=== PATIENT | male | born 1940 | race Caucasian/White ===

== ENCOUNTER → 2019-10-24 11:46 | Outpatient (CLI) | payer MEDICARE, SELFPAY ==
--- NOTE | ~2019-10-24 | XR_ITS ---
EXAMINATION: XR abdomen/kub 1V INDICATION: Bilateral kidney stones TECHNIQUE: Supine views of the abdomen were obtained on 2 radiographs. COMPARISON: 03/08/2019, 02/15/2019 FINDINGS: There has been interval treatment of two stones previously seen in the right distal ureter. Stones of the left kidney measure up to 7 mm. There are multiple punctate stones throughout the left kidney as well as multiple punctate stones of the right kidney. No definite stones are identified al elver the expected courses of the ureters or within the urinary bladder. There is severe lumbar spondyl osis. A moderate volume of colonic stool is present. The lung bases are clear. IMPRESSION: 1. Interval treatment of previously described stones of the right distal ureter. 2. Bilateral nephrolithiasis. Reviewed, dictated and finalized at location A. IMPRESSION: 1. Interval treatment of previously described stones of the right distal ureter . 2. Bilateral nephrolithiasis.
== END ==
PROVIDERS: PCP Family Medicine Adolescent Medicine; Visit Provider Urology
DX: N20.0 Calculus of kidney (principal)
CPT/HCPCS: 74018

== ENCOUNTER → 2020-08-15 09:59 | Outpatient (CLI) | payer MEDICARE, SELFPAY ==
--- NOTE | ~2020-08-15 | XR_ITS ---
EXAMINATION: XR pelvis 1-2V EXAM DATE: 08/15/2020 10:22 INDICATION: fx of superior+inferior pubic rami. TECHNIQUE: Pelvis frontal projection(s) obtained and reviewed. There is no prior study for compariso n. FINDINGS: There are right-sided superior and inferior rami fractures. There is displacement of the gage perior ramus fracture. The sacral arcuate lines do appear intact. Lower lumbar spondylosis. Moderate symmetric bilateral hip primary osteoarthritis. The soft tissue is unremarkable. IMPRESSION: Right superior, inferior rami fractures with superior ramus displaced inferiorly. Reviewed, dictated and finalized at location A. CY MANAGER IMPRESSION: Right superior, inferior rami fractures with superior ramus displa sheri inferiorly.
== END ==
PROVIDERS: PCP Family Medicine Adolescent Medicine; Visit Provider Family Medicine Adolescent Medicine
DX: S32.511A Fracture of superior rim of right pubis, initial encounter for closed fracture (principal)
CPT/HCPCS: 72170

== ENCOUNTER → 2020-09-11 12:27 | Outpatient (CLI) | payer MEDICARE, SELFPAY ==
--- NOTE | ~2020-09-11 | DEXA_ITS ---
Bone Density Report Name: Donte Wayne Age: 80 Sex: Male Ethnicity: White Date of : 1940 Indication: screening for osteoporosis; height loss; prior fracture; Referring Provider: RAJENDRA CATALAN Study: Bone densitometry was performed. Exam Date: September 11, 2020 Accession number: [id number] Bone Density: Region BMD T-score Z-score Classification AP Spine (L3, L4) 1.108 -0.1 1.1 Normal Femoral Neck (Left) 0.683 -1.8 -0.3 Osteopenia Total Hip (Left) 0.819 -1.4 -0.3 Osteopenia Femoral Neck (Right) 0.636 -2.2 -0.6 Osteopenia Total Hip (Right) 0.743 -1.9 -0.8 Osteopenia Total Hip Mean 0.781 -1.7 -0.6 Osteopenia World Health Organization criteria for BMD impression classify patients as: Normal (T-score at or above -1.0), Osteopenia (T-score between -1.0 and -2.5), or Osteoporosis (T-score at or below -2.5). 10-year Fracture Risk(1): Major Osteoporotic Fracture 11% Hip Fracture 4.7% Reported Risk Factors: [place] (), Neck BMD=0.636, BMI=20.5, previous fracture (1) FRAX(R) Version 3.08. Fracture probability calculated for an untreated patient. Fracture probability may be lower if the patient has received treatment. Clinical Information Provided by Patient: Has had a low trauma fracture Has used the following medications: Vitamin D, Calcium Patient maximum height was 71.0 Drinks caffeinated beverages Impression: The patient has low bone mass, based on the Right Femoral Neck T-score. The patient has an estimated ten-year risk of hip fracture of 4.7% and an estimated ten-year risk of major fracture of 11%, based on the WHO FRAX algorithm. The patient has risk factors, including: previous fracture. Discussion: BONE DENSITY IS LOW AT ONE OR MORE SKELETAL SITES. THE PATIENT'S BMD AND CLINICAL RISK FACTORS CONTRIBUTE TO THIS PATIENT'S INCREASED RISK OF FRACTURE. This patient's lowest T-score is low at one or more skeletal sites. It meets the World Health Organization's (WHO) criteria for ?low bone mass? (T-score between -1.0 and -2.5). The patient's 10-year risk of hip fracture as calculated by FRAX exceeds the threshold where pharmacological therapy is recommended by the National Osteoporosis Foundation (NOF). However, all treatment decisions require clinical judgment and consideration of individual patient factors, including patient preferences, comorbidities, previous drug use, risk factors not captured in the FRAX model (e.g., frailty, falls, vitamin D deficiency, increased bone turnover, interval significant decline in bone density) and possible under or overestimation of fracture risk by FRAX. The patient should follow a healthful lifestyle (good nutrition with adequate calcium and vitamin D, and appropriate weight-bearing exercise). Follow-Up: Consider repeating this study in 2 ye
--- NOTE | ~2020-09-11 | XR_ITS ---
XR pelvis 1-2V DATE: 09/11/2020 13:35 INDICATION: Right superior and inferior pubic ramus fractures TECHNIQUE: AP view COMPARISON: pelvis FINDINGS: Diffuse osteopenia. Displaced right superior pubic ramus fracture and right inferior pubic ramus fracture are again noted . Alignment appears intact at the pubic symphysis and sacroiliac joints. Hip joints are normally aligned, hip joint spaces are relatively preserved. Dextroscoliosis and multilevel degenerative disc disease of the lumbar spine. IMPRESSION: Right superior and inferior pubic ramus fractures appear stable compared to 08/15/2020 Reviewed, dictated and finalized at location A. OFABRICATION ENGINEER MANAGER IMPRESSION: Right superior and inferior pubic ramus fractures appear stable com pared to 08/15/2020
== END ==
PROVIDERS: PCP Family Medicine Adolescent Medicine; Visit Provider Family Medicine Adolescent Medicine
DX: M85.88 Other specified disorders of bone density and structure, other site (principal); S32.511D Fracture of superior rim of right pubis, subsequent encounter for fracture with routine healing; X58.XXXD Exposure to other specified factors, subsequent encounter; M85.852 Other specified disorders of bone density and structure, left thigh; M85.851 Other specified disorders of bone density and structure, right thigh
CPT/HCPCS: 72170; 77080

== ENCOUNTER 2021-10-23 11:26 | Outpatient (CLI) | payer MEDICARE, SELFPAY ==
--- NOTE | ~2021-10-23 | XR_ITS ---
XR abdomen/kub 1V DATE: 10/23/2021 12:10 INDICATION: Bilateral kidney stones TECHNIQUE: AP projection, 2 views COMPARISON: 10/24/2019 KUB 03/08/[address] abdomen pelvis FINDINGS: . No evidence of bowel obstruction. Multiple calcifications overlie the renal silhouettes; extensive nephrolithiasis was noted on 03/08/[address] abdomen pelvis examination. At least 4 calcifications are noted in a vertical linear array over lying the expected position of the ureter in the L5 area, of uncertain significance. Consider noncont rast CT abdomen pelvis examination for more definitive evaluation for urinary tract stones. There is a moderately prominent amount of fecal material in the colon, especially the ascending colon . No bowel obstruction is evident. There is evidence of prostate calcifications. The lower lung zones are clear. Heart size appears normal. Diffuse osteopenia. There is thoracolumbar dextroscoliosis. There is degenerative change of the thoracic spine and lumbar spine, with particularly severe degenerative disc disease at L1-2 and L2-3. Old pelvic fracture deformities including particularly the right superior and inferior pubic rami. IMPRESSION: Bilateral nephrolithiasis; cannot exclude right ureteral calculi and L5 area. Consider no ncontrast CT abdomen pelvis examination for more definitive evaluation Prostate calcifications Moderately prominent of fecal material in the colon; no evidence of bowel obstruction Reviewed, dictated and finalized at Location A. Reviewed, dictated and finalized at location A. IMPRESSION: Bilateral nephrolithiasis; cannot exclude right ureteral calculi an d L5 area. Consider noncontrast CT abdomen pelvis examination for more definiti ve evaluation Prostate calcifications Moderately prominent of fecal material in the colon; no evidence of bowel obstr uction
== END 2021-10-23 11:27 | disposition home or self-care (01) ==
LOC: ANHIMG 11:30
PROVIDERS: PCP Family Medicine Adolescent Medicine; Visit Provider Urology
DX: N20.0 Calculus of kidney (principal); M41.9 Scoliosis, unspecified; M47.816 Spondylosis without myelopathy or radiculopathy, lumbar region
CPT/HCPCS: 74018

== ENCOUNTER 2021-10-31 10:03 | Outpatient (CLI) | payer MEDICARE, SELFPAY ==
--- NOTE | ~2021-10-31 | CT_ITS ---
EXAMINATION: CT abdomen pelvis wo con DATE: 10/31/2021 10:27 INDICATION: Bilateral kidney stones TECHNIQUE: Computed tomography (CT) of the abdomen and pelvis was performed without intravenous contr ast. The dose-length product was 158.80 mGy-cm. Automated exposure control and iterative reconstructi on technique were employed. COMPARISON: CT dated 03/08/2019. FINDINGS: Lung bases are unremarkable. Heart size is normal. There is atherosclerosis of the aorta wi thout aneurysm. No no significant pleural or pericardial effusion. There are multiple bilateral renal cysts. There are innumerable bilateral renal stones which are nono bstructing. No definite urolithiasis is identified. There are multiple bladder stones. There are comp licated renal cyst with associated calcification, likely benign. Nonobstructive bowel gas pattern wit h moderate colonic fecal loading. Colonic diverticulosis without evidence for diverticulitis. There a re healed right superior and inferior pubic rami fractures. There is osteoarthritis of the hips. Mode rate-severe lumbar spondylosis. IMPRESSION: 1. Bilateral nonobstructing renal and bladder stones. Reviewed, dictated and finalized at location A.
== END 2021-10-31 10:04 | disposition home or self-care (01) ==
PROVIDERS: PCP Family Medicine Adolescent Medicine; Visit Provider Urology
DX: N21.0 Calculus in bladder (principal); N20.0 Calculus of kidney; M47.816 Spondylosis without myelopathy or radiculopathy, lumbar region; M16.0 Bilateral primary osteoarthritis of hip; K57.30 Diverticulosis of large intestine without perforation or abscess without bleeding
CPT/HCPCS: 74176

== ENCOUNTER → 2022-01-14 15:17 | Outpatient (CLI) | payer MEDICARE, SELFPAY ==
--- NOTE | ~2022-01-14 | MR_ITS ---
EXAMINATION: MR brain IAC wo con DATE: 01/14/2022 16:35 INDICATION: Unspecified dementia without behavioral disturbance. TECHNIQUE: Magnetic resonance imaging (MRI) of the brain, brainstem, and internal auditory canals was performed without intravenous contrast. 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 There are scattered areas of no nspecific increased T2-weighted signal intensity in the cerebral white matter. There is decreased T2* weighted signal intensity at the cortex in the frontal lobes bilaterally. There is no acute ischemic infarct or abnormal mass lesion. The ventricles are normal in size. There is mild mucosal thickening in the ethmoid sinuses. There are likely changes of ocular lens replacement surgeries. The internal a uditory canals and inner and middle ears are normal. The mastoid air cells are normal. IMPRESSION: 1. 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 2. 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 3. Worsened moderate nonspecific cerebral white matter disease, which likely represents chronic small vessel ischemic disease. Reviewed, dictated and finalized at location A. IMPRESSION: 1. 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 2. 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 3. Worsened moderate nonspecific cerebral white matter disease, which likely re presents chronic small vessel ischemic disease.
== END ==
PROVIDERS: PCP Family Medicine Adolescent Medicine; Visit Provider Family Medicine Adolescent Medicine
DX: F03.90 Unspecified dementia, unspecified severity, without behavioral disturbance, psychotic disturbance, mood disturbance, and anxiety (principal); Z86.73 Personal history of transient ischemic attack (TIA), and cerebral infarction without residual deficits; R90.82 White matter disease, unspecified
CPT/HCPCS: 70551

== ENCOUNTER 2022-08-16 13:30 | Inpatient (IN) | payer MEDICARE, SELFPAY ==
--- NOTE | ~2022-08-16 | US_ITS ---
EXAMINATION: US abdomen limited DATE: 08/17/2022 18:05 INDICATION: Elevated liver enzymes TECHNIQUE: Multiple grayscale and Doppler ultrasound images of limited portions of the abdomen were o btained. COMPARISON: None available. FINDINGS: The visualized portions of the pancreas are normal. The liver is normal with normal echogen icity and echotexture. No surface nodularity. Normal hepatopetal flow in the main portal vein. Color partially contracted. Sludge and mobile echogenicities in the gallbladder fundus likely representing stones. Moderate gallbladder wall thickening. The common bile duct measures 5 mm. There was no sonogr aphic Ruiz sign. IMPRESSION: Cholelithiasis, biliary sludge, and gallbladder wall thickening. Reviewed, dictated and finalized at location K. HEARTH FURNACE LABORER
--- NOTE | ~2022-08-16 | XR_ITS ---
XR chest 1V portable 08/16/2022 13:53 Indication: Weakness and lethargy. Dehydration. Procedure: AP portable chest Comparison: 05/24/2019 Findings: Heart size normal. Calcified granuloma left upper thorax. Left basilar airspace disease. No significant effusion or pneumothorax. No acute osseous abnormality. Impression: 1: Left basilar airspace disease may represent pneumonia and/or atelectasis. Reviewed, dictated and finalized at location A. EL ADMINISTRATOR Impression: 1: Left basilar airspace disease may represent pneumonia and/or atelectasis.
--- NOTE | ~2022-08-16 | MR_ITS ---
EXAMINATION: MR MRCP wo/w con/w 3D wo ind DATE: 08/20/2022 10:22 INDICATION: Elevated bilirubin TECHNIQUE: Magnetic resonance imaging (MRI) of the abdomen was performed without intravenous contrast . The study was terminated prior to completion of the standard complement of sequences and prior to a dministration of the planned intravenous contrast due to patient combativeness which persisted despit e medication. Sequences obtained included hoist worker localizer imaging and only the axial T2-weighted FS S S-FSE. COMPARISON: None. FINDINGS: Limited study due to patient combativeness requiring termination of the study prior to obtaining the standard complement of imaging including the postcontrast imaging. There are small bilateral pleural effusions with dependent likely compressive atelectasis in the bilateral lower lobes. Cardiomegaly. N o pericardial effusion. Liver appears normal with no hepatic replacement lesions or intrahepatic bili lito ductal dilation. There are few small low signal intensity filling defects consistent with gallsto hari within the otherwise normal-appearing gallbladder. The common bile duct measures approximately 4 mm in diameter which is normal and tapers smoothly distally. No evident choledocholithiasis although evaluation is more limited than a complete high-quality MRI/MRCP. Multiple bilateral T2 hyperintense renal cysts, the largest measuring up to 7 cm the lower pole the left kidney. A few low signal intens ity calcified granulomata in the spleen. Pancreas and bilateral adrenal glands are normal. Visualized bowels are unremarkable with no evident obstruction. No pathologically enlarged abdominal lymphadeno felix. Mild S-shaped curvature of the lumbar spine with severe spondylosis. IMPRESSION: 1. Significantly limited study terminated prior to obtaining the majority of the standard complement of sequences including the postcontrast images. 2. Cholelithiasis. Normal gallbladder and no intra- or extrahepatic biliary ductal dilation. 3. Small bilateral pleural effusions with dependent likely compressive atelectasis in bilateral lower lobes. 4. Cardiomegaly. Reviewed, dictated and finalized at location A. AL SUPERVISOR IMPRESSION: 1. Significantly limited study terminated prior to obtaining the majority of th e standard complement of sequences including the postcontrast images. 2. Cholelithiasis. Normal gallbladder and no intra- or extrahepatic biliary roxi pilar dilation. 3. Small bilateral pleural effusions with dependent likely compressive atelecta sis in bilateral lower lobes. 4. Cardiomegaly.
--- NOTE | ~2022-08-16 | CT_ITS ---
EXAMINATION: CT abdomen pelvis w con DATE: 08/16/2022 15:52 INDICATION: RLQ pain TECHNIQUE: Computed tomography (CT) of the abdomen and pelvis was performed with 100 mL Omnipaque-350 intravenous contrast. Automated exposure control and iterative reconstruction technique were employe d. The dose-length product was 231.00 mGy-cm. COMPARISON: 10/31/2021. FINDINGS: Lower thorax: Senescent change. Bibasilar and dependent atelectasis/scar. Liver: Normal. Biliary/Gallbladder: Gallbladder is collapsed. No bile duct dilation. Pancreas: No mass or duct dilation. Spleen: Normal. Adrenals:No mass. Kidneys: Multiple bilateral simple renal cysts and calcified cysts which are likely benign. Innumerab le nonobstructing renal calculi. Multiple hypodensities too small to characterize but also likely rep resent cysts. No suspicious mass. No hydronephrosis. GI tract: Distal esophageal and gastric wall edema. Mild wall edema in the sigmoid colon. No small or large bowel dilation. Appendix not visualized. Diverticulosis without diverticulitis. Mesentery/Peritoneum: No mass or free air. Mesenteric edema. Retroperitoneum: No mass. Atherosclerotic abdominal aortic and/or arterial calcifications. Pelvis: Multiple calcifications within the bladder lumen.. Soft Tissues: Soft tissues and body wall unremarkable. Bones: No acute osseous finding. IMPRESSION: Esophagitis/gastritis. Sigmoid wall edema may reflect a component of colitis. Mesenteric edema, a non specific finding. Bilateral nonobstructing renal stones. Bladder stones. Reviewed, dictated and finalized at location [facility]. [facility] EXAMINER IMPRESSION: Esophagitis/gastritis. Sigmoid wall edema may reflect a component of colitis. M esenteric edema, a nonspecific finding. Bilateral nonobstructing renal stones. Bladder stones.
[2022-08-16 13:31] VITALS: BP 91/58; PULSE 104; RESP 16; TEMP 36.9; O2SAT 94
--- NOTE | 2022-08-16 13:36 | ECG_ITS ---
Measurements Intervals [place] Rate: 89 P: 38 SC: 170 QRS: 21 QRSD: 87 T: 50 QT: 357 QTc: 436 Interpretive Statements SINUS RHYTHM FREQUENT ATRIAL PREMATURE COMPLEXES DELAYED PRECORDIAL R/S TRANSITION ABNORMAL ECG COMPARED TO ECG 05/24/2019 15:26:18 SINUS RHYTHM NOW PRESENT Electronically Signed On 08-16-2022 16:33:52 MINE EXPLORATION ENGINEER by Audi Hopkins D.O.
--- NOTE | 2022-08-16 13:56 | ED.WEAKNESS ---
HPI - Weakness General Chief complaint: Weakness Stated complaint: not feeling good/ dehydrated Time Seen by Provider: 08/16/22 13:37 History of Present Illness HPI Narrative: Patient is an 82-year-old male with a history of Alzheimer's presenting with lethargy and abdominal pain. Patient son reports that starting yesterday he had decreased appetite and skipped dinner. He started complaining of right-sided abdominal pain and he had 1 episode of emesis. This morning he was able to eat breakfast normally but by lunchtime his nursing facility was concerned that he looks more lethargic than normal. He again was complaining of right-sided abdominal pain. Here, patient continues to complain of right lower quadrant pain and states that he feels thirsty. He denies current nausea. He denies fevers, headache, chest pain, shortness of breath, diarrhea, constipation, dysuria, leg swelling. Related Data Home Medications Medication Instructions Recorded Confirmed finasteride 5 mg tablet 5 mg PO DAILY 08/16/22 08/16/22 memantine 10 mg tablet 10 mg PO BID 08/16/22 08/16/22 sulindac 200 mg tablet 200 mg PO BID 08/16/22 08/16/22 tamsulosin 0.4 mg capsule 0.4 mg PO DAILY 08/16/22 08/16/22 Allergies Allergy/AdvReac Type Severity Reaction Status Date / Time Penicillins Allergy Unknown unknown Verified 08/16/22 18:25 Review of Systems Review of Systems: All systems reviewed & are unremarkable except as noted in HPI and below PMFSH Past Medical History Medical History History of fractured pelvis 07/29 History of TIA (transient ischemic attack) 07/25 on right Surgical History Surgical History History of inguinal hernia repair Family History Family History Mother Breast cancer Father Malignant neoplasm of prostate Social History Social History Smoking status: Never smoker Second hand tobacco smoke exposure: No Alcohol intake: never Substance use: never Substance use type: does not use Lack of Transportation: No Lack of Food: Never True Current Housing: I Have Housing Concerned About Future Housing: No Difficulty Paying Gas/Electric Bills: No Difficulty Paying for Meds: No Currently Unemployed: No Education: Don't Know Difficulty w/ Childcare or Family Care: No Gender identity (if verbalized by the patient): Male Sexual Orientation (if Verbalized by the Patient): Straight or Heterosexual Spiritual care concerns: No Agree to blood products: Yes Exam Narrative: GENERAL: Well-appearing, well-nourished, and in no acute distress. HEAD: Normocephalic, atraumatic. EYES: PERRLA and EOMI. ENT: Nares clear, no rhinorrhea or epistaxis. Mucous membranes dry NECK: Supple. CHEST: Clear to auscultation. No respiratory distress. HEART: Regular rate and rhythm. No murmur heard. Normal peripheral pulses. ABDOMEN: Soft, tender in right lower quadrant, no guarding or rebound, nondistended, healed incision left lower quadrant EXTREMITIES: Normal range of motion. No edema. SKIN: Warm, dry, no rash. NEURO: No focal deficits. Alert and oriented x3. PSYCH: Normal mood and affect. Course Vital Signs Vital signs: Vital Signs Temperature 98.4 F 08/16/22 13:31 Pulse Rate 104 H 08/16/22 13:31 Respiratory Rate 16 08/16/22 13:31 Blood Pressure 91/58 L 08/16/22 13:31 Pulse Oximetry 94 08/16/22 13:31 Temperature 97.4 F L 08/16/22 18:45 Pulse Rate 84 08/16/22 18:45 Respiratory Rate 18 08/16/22 18:45 Blood Pressure 124/67 08/16/22 18:45 Pulse Oximetry 99 08/16/22 18:45 MDM - Weakness MDM Narrative Medical decision making narrative: Patient is an 82-year-old male presenting with right lower quadrant pain and fatigue. Patient initially was so
[2022-08-16 14:05] VITALS: PULSE 76
[2022-08-16 14:25] LABS: Basophils Percent Auto 0.2 % (0.2-1.2); Eosinophils Percent Auto 0.2 % (0-4.4); Hematocrit 40.9 % (42.0-52.0); Hemoglobin 13.7 g/dL (14.0-18.0); Immature Granulocyte Absolute 0.05 K/mm3 (0.00-0.031); Immature Granulocyte Percent A 0.4 % (0-0.5); Lymphocytes Absolute Auto 0.68 K/mm3 (0.9-3.2); Lymphocytes Percent Auto 5.3 % (18.3-44.2); Mean Corpuscular HGB Conc 33.5 g/dl (32-36); Mean Corpuscular Hemoglobin 33.4 pg (26-34); Mean Corpuscular Volume 99.8 fl (80-100); Mean Platelet Volume 10.5 fl (7.4-10.4); Monocytes Absolute Auto 0.8 K/mm3 (0.1-0.6); Monocytes Percent Auto 6.2 % (2.6-8.5); Neutrophils Absolute Auto 11.4 K/mm3 (1.3-6.7); Neutrophils Percent Auto 87.7 % (45.5-73.1); Platelet Count Result 215 k/mm3 (150-375); Red Cell Distribution Width 14.1 % (11.5-14.5); White Blood Count 12.9 K/mm3 (4.5-10.0)
[2022-08-16 14:42] LABS: Alanine Aminotransferase 70 U/L (6-50); Albumin Level 4.1 g/dL (3.5-5.1); Alkaline Phosphatase 119 U/L (38-126); Anion Gap 5 mmol/L (8-16); Aspartate Amino Transferase 71 U/L (17-59); Bilirubin,Total 1.6 mg/dL (0.2-1.3); Blood Urea Nitrogen 28 mg/dL (9-20); Calcium 8.7 mg/dL (8.4-10.2); Carbon Dioxide 29 mmol/L (22-30); Chloride 106 mmol/L (98-107); Estimated CRCL calculation 57 ml/min; Estimated Glomerular Filt Rate > 60; Glucose 114 mg/dL (65-110); Potassium 3.7 mmol/L (3.4-5.0); Sodium 140 mmol/L (137-145)
[2022-08-16] MEDS: SODIUM CHLORIDE 0.9% IV 1,000 ML 999 ML IV CONT (14:54)
[2022-08-16 14:55] VITALS: BP 110/72; PULSE 74; RESP 18; O2SAT 99
[2022-08-16 15:22] LABS: Add Urine Microscopic? YES; Appearance Urine Clear (Clear); Bilirubin Urine Negative (Negative); Blood Urine Trace-Intact (Negative); Color Urine Yellow (Yellow); Glucose Urine UA Negative (Negative); Ketones Urine Trace mg/dL (Negative); Leukocyte Esterase Ur Negative LEU/UL (Negative); Nitrate Urine Negative (Negative); Protein Urine 1+ mg/dL (Negative); Specific Grav Ur 1.025 (1.001-1.035); Urobilinogen Urine 0.2 mg/dL (<2.0)
[2022-08-16 15:32] LABS: Mucus Urine Rare /lpf
[2022-08-16 15:54] LABS: Influenza A QL RT-PCR Negative (Negative); Influenza B QL RT-PCR Negative (Negative); SARS-CoV-2 RNA PCR Negative
[2022-08-16 16:44] LABS: Lipase 7701 U/L (23-300)
[2022-08-16] MEDS: FAMOTIDINE 20 MG/2 ML VIAL IV PUSH (17:16)
--- NOTE | 2022-08-16 18:30 | ADMGEN ---
This patient, Donte Wayne, was admitted to [facility] Surg Room 321-02. Patient/family oriented to hospital policies and general routines including ID bracelet, bed and alarms, visiting hours, pain management, procedures, bathroom and other care routines, personal items, smoking policy, room service/diet, and visiting hours. Information on how to activate the Rapid Response Team has been discussed. Patient/Family are encouraged to report perceived risks to care and to ask questions if they do not understand what they are told or what they should do.
[2022-08-16 18:45] VITALS: BP 124/67; PULSE 84; RESP 18; TEMP 36.3; O2SAT 99
[2022-08-16 19:49] VITALS: O2SAT 99
[2022-08-16 22:00] VITALS: BP 112/74; PULSE 74; RESP 16; TEMP 36.5; O2SAT 96
--- NOTE | 2022-08-16 22:26 | PM.IMHP ---
H&P: HPI History of Present Illness Date/Time: 08/16/22 22:26 Chief Complaint: Weakness Narrative: This is a 82-year-old male patient who has a history of Alzheimer's dementia. The patient's son was here earlier and stated that the patient's appetite has decreased since yesterday. The patient was also complaining of some right-sided abdominal pain and had 1 episode of emesis. The patient did eat breakfast this morning lunch time he was very lethargic. He then again complained of right-sided abdominal pain. The patient denied any chest pain or shortness of breath. Abdominal pelvis CT was read as a sulfa diet is/gastritis. Sigmoid wall edema may reflect a component of colitis. Mesenteric edema, nonspecific findings. Bilateral nonobstructive renal stones. Bladder stones. Chest x-ray was read as left basilar airspace disease may represent pneumonia or atelectasis. His white count is noted to be 12.9. H&H is 13.7 and 40.9. Total bilirubin is 1.6, AST 71 ALT 70. Patient's lipase is noted to be 7701. The patient was found to be negative for influenza A/B and COVID. The patient is being admitted to inpatient status on the date of service is 08/16/2022. Review of Systems Review of Systems: See HPI All systems reviewed & are unremarkable except as noted in HPI and below Constitutional: Constitutional: Reports as per HPI and Reports no additional constitutional complaints Eyes: Eyes: Reports as per HPI and Reports no additional eye complaints ENT: Reports system reviewed and no additional complaints, except as documented and Reports Normal hearing present Cardiovascular: Cardiovascular: Reports no additional cardiovascular complaints Respiratory: Respiratory: Reports no additional respiratory complaints and Reports no additional respiratory complaints Gastrointestinal: Gastrointestinal: Reports as per HPI and Reports no additional gastrointestinal complaints Musculoskeletal: Musculoskeletal: Reports no additional musculoskeletal complaints Integumentary/Breasts: Skin/Breast: Reports system reviewed and no additional complaints, except as docu and Reports as per HPI Neurologic: Reports system reviewed and no additional complaints, except as documented, Reports as per HPI and Reports Normal hearing present Psychiatric: Psychiatric: Reports no additional psychiatric complaints and Reports as per HPI Endocrine: Endocrine: Reports no additional endocrine complaints Hematologic/Lymphatic: Hematologic/Lymphatic: Reports no additional hematologic/lymphatic complaints Allergic/Immunologic: Allergic/Immunologic: Reports no additional allergic/immunologic complaints [facility] Past Medical History Medical History History of fractured pelvis 07/29 History of TIA (transient ischemic attack) 07/25 on right Surgical History Surgical History H/O cataract extraction History of inguinal hernia repair Family History Family History Mother Breast cancer Father Malignant neoplasm of prostate Social History Social History (Updated 08/17/22 @ 00:10 by Opal Givens NP) Social History: Patient resides in a long-term. The patient stated that he is x2. However on his demographics states that he is . Zahra is listed as his spouse and service advocate contact. He also has a son Tyler listed as his contact. The patient is retired. Code status full code Smoking status: Never smoker Second hand tobacco smoke exposure: No Alcohol intake: never Substance use: never Substance use type: does not use Lack of Transportation: No Lack of Food: Never True Current Housing: I Have Housing Concerned About Future Housing: No Difficulty Paying Gas/Electric Bills: No Difficulty Paying for Meds: No Currently Unemployed: No Education: Don't Kn
[2022-08-17] MEDS: SODIUM CHLORIDE 0.9% IV 1,000 ML 100 ML IV CONT ×2 (00:49→10:06)
[2022-08-17 05:43] VITALS: BP 113/59; PULSE 85; RESP 18; TEMP 36.7; O2SAT 95
[2022-08-17 07:00] LABS: Basophils Absolute Auto 0.1 K/mm3 (0.0-0.1); Basophils Percent Auto 0.4 % (0.2-1.2); Eosinophils Absolute Auto 0.4 K/mm3 (0-0.3); Eosinophils Percent Auto 2.8 % (0-4.4); Hematocrit 38.5 % (42.0-52.0); Hemoglobin 12.9 g/dL (14.0-18.0); Immature Granulocyte Absolute 0.06 K/mm3 (0.00-0.031); Immature Granulocyte Percent A 0.4 % (0-0.5); Lymphocytes Absolute Auto 0.81 K/mm3 (0.9-3.2); Lymphocytes Percent Auto 5.7 % (18.3-44.2); Mean Corpuscular HGB Conc 33.5 g/dl (32-36); Mean Corpuscular Hemoglobin 32.8 pg (26-34); Mean Platelet Volume 10.3 fl (7.4-10.4); Monocytes Absolute Auto 1.1 K/mm3 (0.1-0.6); Monocytes Percent Auto 7.6 % (2.6-8.5); Neutrophils Absolute Auto 11.8 K/mm3 (1.3-6.7); Neutrophils Percent Auto 83.1 % (45.5-73.1); Platelet Count Result 184 k/mm3 (150-375); Red Blood Count 3.93 M/mm3 (4.6-6.20); Red Cell Distribution Width 14.1 % (11.5-14.5); White Blood Count 14.1 K/mm3 (4.5-10.0)
[2022-08-17 07:14] LABS: Alanine Aminotransferase 51 U/L (6-50); Albumin Level 3.5 g/dL (3.5-5.1); Alkaline Phosphatase 101 U/L (38-126); Anion Gap 5 mmol/L (8-16); Aspartate Amino Transferase 42 U/L (17-59); Bilirubin,Total 1.4 mg/dL (0.2-1.3); Blood Urea Nitrogen 22 mg/dL (9-20); Calcium 8.1 mg/dL (8.4-10.2); Carbon Dioxide 26 mmol/L (22-30); Chloride 105 mmol/L (98-107); Cholesterol 146 mg/dL (0-200); Estimated CRCL calculation 74 ml/min; Estimated Glomerular Filt Rate > 60; Glucose 75 mg/dL (65-110); HDL Direct 79 mg/dL; Lactic Acid Reflex 0.9 mmol/L (0.7-2.0); Lipase 777 U/L (23-300); Magnesium 1.8 mg/dL (1.6-2.3); Potassium 3.4 mmol/L (3.4-5.0); Sodium 136 mmol/L (137-145); Triglycerides 45 mg/dL (<150)
[2022-08-17 07:24] LABS: LDL Cholesterol Direct 43 mg/dL
[2022-08-17 08:00] VITALS: O2SAT 95
[2022-08-17] MEDS: FAMOTIDINE 20 MG/2 ML VIAL IV PUSH (08:32)
--- NOTE | 2022-08-17 11:37 | PM.IMPN ---
Progress Note: A&P Assessment and Plan (1) Pancreatitis: Code(s): K85.90 - Acute pancreatitis without necrosis or infection, unspecified Status: Acute Assessment and Plan: Presented with decreased appetite, abdominal pain, [address] abdomen/pelvis on presentation did reveal any pancreatic abnormalities, however lipase was elevated to 7700. No alcohol use. Triglycerides within normal limits. Lipase with marked downward trend to 770 today. Perhaps patient passed a stone. RUQ US ordered today but not able to be completed until tomorrow. Will allow for clear liquid diet today as pain has resolved and make NPO at midnight for US tomorrow to assess common bile ducts and gallbladder. Trend lipase. Continue gentle IV fluids. Analgesics antiemetics as needed (2) Transaminitis: Code(s): R74.01 - Elevation of levels of liver transaminase levels Status: Acute Assessment and Plan: Improving. Total bili down from 1.6-1.4 today. AST and ALT normalized. As noted above, perhaps patient passed a stone. Further workup pending. Trend LFTs (3) Gastritis: Code(s): K29.70 - Gastritis, unspecified, without bleeding Status: Acute Assessment and Plan: Gastritis and esophagitis noted on CT. Begin pantoprazole 40 mg daily. (4) Kidney stone: Code(s): N20.0 - Calculus of kidney Status: Acute Assessment and Plan: Innumerable nonobstructing kidney stones as well as bladder stones noted on CT. Patient is asymptomatic. No intervention required. Encourage increased oral hydration. Strain urine (5) Dementia: Code(s): F03.90 - Unspecified dementia, unspecified severity, without behavioral disturbance, psychotic disturbance, mood disturbance, and anxiety Status: Acute Assessment and Plan: Patient is oriented to self only. Resides in Memory Care. Seems to be at his baseline. Continue home memantine (6) Benign prostatic hyperplasia without lower urinary tract symptoms: Code(s): N40.0 - Benign prostatic hyperplasia without lower urinary tract symptoms Status: Acute Assessment and Plan: Resume home finasteride and tamsulosin. Monitor urine output (7) Renal cyst: Code(s): N28.1 - Cyst of kidney, acquired Status: Acute Assessment and Plan: Multiple bilateral simple renal cysts and calcified cyst incidentally noted on CT of the abdomen pelvis today, likely benign. No need for further intervention at this time. Subjective Date/time seen: 08/17/22 11:37 Interval history: Date of service: 08/17/22 Donte Wayne is an 82 year old male with a history of dementia, TIA, and BPH who is seen in follow up for pancreatitis. Patient is a poor historian given his dementia. He is pleasantly confused. Initially thought that he was at home, then corrected himself stating he believed we were at ?the old high school.? He denies any abdominal pain, though does report that he had pain yesterday. He denies any epigastric discomfort, burning, dysphagia. No fever or chills. Not able to provide any additional history. Review of Systems Review of Systems: ROS unobtainable: Yes unobtainable due to mental status Exam Narrative: General: Thin, chronically ill-appearing 82-year-old male, supine in bed, comfortable, NARD Neuro: awake, alert and oriented to self only, speech clear, no focal neuro deficits noted, pleasantly confused HEENMT: normocephalic, atraumatic, EOMI, sclerae anicteric Respiratory: clear to auscultation bilaterally, nonlabored breathing Cardio: regular rate, regular rhythm with S1-S2 Abdomen: nondistended, normoactive bowel sounds, soft, nontender to palpation, no epigastric tenderness, Ruiz sign negative Extremities: no edema, erythema, or tenderness to palpation, DP pulses 2+ bilaterally Skin: no rashes or lesions, warm and dry Psych: appropriate mood and affect, judgment and insigh
[2022-08-17 14:00] VITALS: BP 105/66; PULSE 64; RESP 16; TEMP 36.8; O2SAT 97
[2022-08-17] MEDS: PANTOPRAZOLE 40 MG TABLET PO (17:38)
[2022-08-17] MEDS: MEMANTINE 10 MG TABLET PO (17:38)
[2022-08-17 21:18] VITALS: BP 122/67; PULSE 66; RESP 20; TEMP 36.4; O2SAT 98
[2022-08-18] MEDS: OLANZapine 10 MG INJ VIAL 5 MG IM (00:52)
[2022-08-18] MEDS: SODIUM CHLORIDE 0.9% IV 1,000 ML 75 ML IV CONT (05:31)
[2022-08-18 05:43] VITALS: BP 125/74; PULSE 82; RESP 18; TEMP 36.4; O2SAT 96
[2022-08-18 07:06] LABS: Hematocrit 39.6 % (42.0-52.0); Hemoglobin 13.2 g/dL (14.0-18.0); Mean Corpuscular HGB Conc 33.3 g/dl (32-36); Mean Corpuscular Hemoglobin 33.3 pg (26-34); Mean Platelet Volume 10.3 fl (7.4-10.4); Platelet Count Result 195 k/mm3 (150-375); Red Blood Count 3.96 M/mm3 (4.6-6.20); Red Cell Distribution Width 13.8 % (11.5-14.5); White Blood Count 10.7 K/mm3 (4.5-10.0)
[2022-08-18 07:16] LABS: Alanine Aminotransferase 38 U/L (6-50); Albumin Level 3.3 g/dL (3.5-5.1); Alkaline Phosphatase 94 U/L (38-126); Anion Gap 4 mmol/L (8-16); Aspartate Amino Transferase 34 U/L (17-59); Bilirubin,Total 1.5 mg/dL (0.2-1.3); Blood Urea Nitrogen 19 mg/dL (9-20); Calcium 8.3 mg/dL (8.4-10.2); Carbon Dioxide 28 mmol/L (22-30); Chloride 105 mmol/L (98-107); Estimated CRCL calculation 64 ml/min; Estimated Glomerular Filt Rate > 60; Glucose 83 mg/dL (65-110); Lipase 118 U/L (23-300); Potassium 3.2 mmol/L (3.4-5.0); Sodium 137 mmol/L (137-145)
[2022-08-18 09:31] LABS: Magnesium 1.8 mg/dL (1.6-2.3)
[2022-08-18] MEDS: KCL 20 MEQ/SW 100 ML 100 ML 50 MEQ IVPB (10:18)
--- NOTE | 2022-08-18 10:33 | PM.CNGS ---
Assessment and Plan Assessment and plan (1) Pancreatitis: Code(s): K85.90 - Acute pancreatitis without necrosis or infection, unspecified Status: Acute Assessment and Plan: Patient presented with acute biliary pancreatitis. LFTs elevated on admission but overall have been trending down. It appears his pancreatitis is resolving. He is not complaining of any abdominal pain and his abdominal exam is benign. Lipase is normal today. I called and discussed both non operative and surgical treatment options with his son/POA, Tyler. Typically, a cholecystectomy would be indicated for a good surgical candidate to prevent recurrence or future complications with the cholelithiasis. Although, with the patient's age and dementia, he does have additional risks when considering surgery and general anesthesia. We discussed the procedure, risks, benefits, alternatives, and expected recovery in detail. We also discussed the option of following a low fat diet with monitoring, and the risks associated with non operative management. His son feels he would prefer to avoid surgery at this time, but would like to talk it over with his . He will touch base with us again tomorrow to give a definite answer regarding his wishes. Will start full liquids today and continue to monitor. Thank you for allowing us to see the patient in consultation and we will continue to follow along with you. (2) Cholelithiasis: Code(s): K80.20 - Calculus of gallbladder without cholecystitis without obstruction Status: Acute Assessment and Plan: Evidence of cholelithiasis and biliary sludge on ultrasound. (3) Transaminitis: Code(s): R74.01 - Elevation of levels of liver transaminase levels Status: Acute Assessment and Plan: LFTs trending down. Total bilirubin still about the same at 1.5. It is unlikely the patient would be able to lie still for an MRCP. Would recommend GI consultation if LFTs trend up. (4) Gastritis: Code(s): K29.70 - Gastritis, unspecified, without bleeding Status: Acute Assessment and Plan: Noted on CT. Currently on protonix. (5) Dementia: Code(s): F03.90 - Unspecified dementia, unspecified severity, without behavioral disturbance, psychotic disturbance, mood disturbance, and anxiety Status: Chronic (6) Benign prostatic hyperplasia without lower urinary tract symptoms: Code(s): N40.0 - Benign prostatic hyperplasia without lower urinary tract symptoms Status: Acute Plan I have discussed the patient's case and plan of care with Dr. Hart. History of Present Illness Consult details Consult date: 08/18/22 Reason for consult: gallstones (Suspected gallstone pancreatitis) Requesting physician: Aggie Carrera PA-C Narrative: This is an 82-year-old man with dementia who presented to the ER 2 days ago from [facility] for evaluation of lethargy and abdominal pain. He is unable to provide history, therefore his history is obtained by review of the electronic medical record. He had apparently had decreased appetite and complaints of right-sided abdominal pain. He also had an episode of vomiting. Staff felt he appeared lethargic and he was brought into the ER for evaluation. In the ER, he was complaining of RLQ abdominal pain and thirst. His labs showed a WBC count 12,900, total bilirubin 1.6, AST 71, ALT 70, alk phos 119, and lipase 7,701. CT scan of the abdomen and pelvis showed esophagitis/gastritis, sigmoid wall edema, mesenteric edema, bilateral renal stones, and bladder stones. Right upper quadrant abdominal ultrasound ordered and showed cholelithiasis, biliary sludge, and gallbladder wall thickening. The patient was admitted to the hospitalist service for acute pancreatitis. He has been on IV fluids and did get clear liquids yesterday. His lipase has come down to normal today. LFTs have overall trended down, but total bilirubin is about the same at 1.5
[2022-08-18 14:00] VITALS: BP 115/55; PULSE 59; RESP 16; TEMP 36.3; O2SAT 95
--- NOTE | 2022-08-18 14:38 | PM.IMPN ---
Progress Note: A&P Assessment and Plan (1) Pancreatitis: Code(s): K85.90 - Acute pancreatitis without necrosis or infection, unspecified Status: Acute Assessment and Plan: Presented with decreased appetite, abdominal pain, [address] abdomen/pelvis on presentation did not reveal any pancreatic abnormalities, however lipase was elevated to 7700. No alcohol use. Triglycerides within normal limits. RUQ US revealed cholelithiasis, biliary sludge, and gallbladder wall thickening with normal common bile duct. Consult to General surgery, recommendations appreciated. General surgery discussed laparoscopic cholecystectomy with patient's son/ POA. He is considering this and will come back within answer tomorrow. Advance to full liquid diet today per General surgery recommendations. Continue with gentle IV fluids Until tolerating oral intake. Analgesics and antiemetics as needed (2) Transaminitis: Code(s): R74.01 - Elevation of levels of liver transaminase levels Status: Acute Assessment and Plan: Improving. Total bili slightly elevated at 1.5. AST and ALT normalized. Perhaps patient passed a stone given rapid improvement in lipase, however MRCP not indicated given normal common bile duct and overall improvement in labs. Also doubt patient would be able to tolerate lying still for MRCP. Consider GI consult if any changes in condition. (3) Gastritis: Code(s): K29.70 - Gastritis, unspecified, without bleeding Status: Acute Assessment and Plan: Gastritis and esophagitis noted on CT. Pantoprazole 40 mg daily. (4) Dementia with agitation: Code(s): F03.911 - Unspecified dementia, unspecified severity, with agitation Status: Acute Assessment and Plan: Patient is oriented to self only and resides in Memory Care, felt to be at his baseline mental status. Continue home memantine. Patient has been restless throughout hospitalization. No improvement with single dose of IM Zyprexa yesterday. Will begin low-dose Seroquel this evening and monitor for response. (5) Kidney stone: Code(s): N20.0 - Calculus of kidney Status: Acute Assessment and Plan: Innumerable nonobstructing kidney stones as well as bladder stones noted on CT. Patient is asymptomatic. No intervention required. Encourage increased oral hydration. Strain urine (6) Benign prostatic hyperplasia without lower urinary tract symptoms: Code(s): N40.0 - Benign prostatic hyperplasia without lower urinary tract symptoms Status: Acute Assessment and Plan: Continue home finasteride and tamsulosin. Monitor urine output (7) Renal cyst: Code(s): N28.1 - Cyst of kidney, acquired Status: Acute Assessment and Plan: Multiple bilateral simple renal cysts and calcified cyst incidentally noted on CT of the abdomen pelvis, likely benign. No need for further intervention at this time. Subjective Date/time seen: 08/18/22 14:38 Interval history: Date of service: 08/18/22 Donte Wayne is an 82 year old male with a history of dementia, TIA, and BPH who is seen in follow up for pancreatitis. per nursing staff, patient has been very restless. Last night he only slept about 20 minutes because he was up all night pulling at his IV and getting up out of bed. he was given a dose of Zyprexa last night which did not seem to have much effect. Patient fell asleep this morning and I did not attempt to wake him to obtain history as it would not be beneficial given his dementia Review of Systems Review of Systems: ROS unobtainable: Yes unobtainable due to mental status Exam Narrative: General: Thin, chronically ill-appearing 82-year-old male, supine in bed, comfortable, NARD Neuro: asleep, resting comfortably HEENMT: normocephalic, atraumatic, EOMI, sclerae anicteric Respiratory: clear to auscultation anteriorly, nonlabored breathing
[2022-08-18] MEDS: TAMSULOSIN HCL 0.4 MG CAPSULE PO (15:18)
[2022-08-18] MEDS: MEMANTINE 10 MG TABLET PO (15:18)
[2022-08-18] MEDS: PANTOPRAZOLE 40 MG TABLET PO (15:18)
[2022-08-18] MEDS: FINASTERIDE 5 MG TABLET PO (15:18)
[2022-08-18 20:00] VITALS: PULSE 58; RESP 16; O2SAT 93
[2022-08-18] MEDS: QUEtiapine FUMARATE 12.5 MG TABLET PO (21:54)
[2022-08-18 22:00] VITALS: BP 110/57; PULSE 58; RESP 16; TEMP 36.8; O2SAT 93
[2022-08-19 06:00] VITALS: BP 123/78; PULSE 58; RESP 14; TEMP 36.3; O2SAT 93
[2022-08-19 07:06] LABS: Alanine Aminotransferase 37 U/L (6-50); Albumin Level 3.5 g/dL (3.5-5.1); Alkaline Phosphatase 87 U/L (38-126); Anion Gap 5 mmol/L (8-16); Aspartate Amino Transferase 46 U/L (17-59); Bilirubin,Total 2.1 mg/dL (0.2-1.3); Blood Urea Nitrogen 18 mg/dL (9-20); Calcium 8.5 mg/dL (8.4-10.2); Carbon Dioxide 27 mmol/L (22-30); Chloride 104 mmol/L (98-107); Estimated CRCL calculation 64 ml/min; Estimated Glomerular Filt Rate > 60; Glucose 78 mg/dL (65-110); Lipase 72 U/L (23-300); Potassium 3.2 mmol/L (3.4-5.0); Sodium 136 mmol/L (137-145)
--- NOTE | 2022-08-19 12:10 | PCPTNOTE ---
Attempted PT evaluation, pt not opening eyes/alert enough to safely participate in PT at this time. RN aware. Will follow.
--- NOTE | 2022-08-19 12:11 | PM.PNGS ---
Progress Note: A&P Assessment and Plan (1) Pancreatitis: Code(s): K85.90 - Acute pancreatitis without necrosis or infection, unspecified Status: Acute Assessment and Plan: Resolving. Lipase normal again this morning. He did not eat much for dinner last night and appears he did not eat breakfast this morning. His abdominal exam is benign. His bilirubin went up to 2.1 today. Not sure if the patient would tolerate lying still for an MRCP. Recommend GI consultation. (2) Cholelithiasis: Code(s): K80.20 - Calculus of gallbladder without cholecystitis without obstruction Status: Acute Assessment and Plan: Patient's son spoke with nursing this morning and confirmed that he would prefer to avoid surgery and instead try dietary modifications to prevent future episodes/issues. (3) Transaminitis: Code(s): R74.01 - Elevation of levels of liver transaminase levels Status: Acute Assessment and Plan: Total bilirubin up today. GI consulted. (4) Gastritis: Code(s): K29.70 - Gastritis, unspecified, without bleeding Status: Acute (5) Dementia: Code(s): F03.90 - Unspecified dementia, unspecified severity, without behavioral disturbance, psychotic disturbance, mood disturbance, and anxiety Status: Chronic Plan I have discussed the patient's case and plan of care with Dr. Hart. Subjective Subjective Date/Time Seen: 08/19/22 11:11 Interval history: Patient with dementia. He is asleep when entering the room but woke up to name. He is confused at baseline. He denies any abdominal pain or nausea this morning. Review of Systems Review of Systems: ROS unobtainable: Yes unobtainable due to medical condition Exam Const: General: comfortable and no acute distress Orientation/consciousness: confusion GI: Inspection: non-distended GI Palp: Yes Soft to palpation, No Tenderness to palpation present (GI), No Guarding due to palpation present (GI) and No Rebound tenderness present Auscultation: normal bowel sounds Psych: Insight: Limited insight present (Psych) Judgement: Limited judgement present (Psych) Objective Data Vital Signs Vital Signs: Vital Signs - 24 hr 08/18/22 14:00 08/18/22 22:00 08/18/22 20:00 Temperature 97.4 F L 98.2 F Pulse Rate 59 L 58 L 58 L Respiratory Rate 16 16 16 Blood Pressure 115/55 L 110/57 L Pulse Oximetry 95 93 93 Oxygen Delivery Room Air 08/19/22 06:00 Temperature 97.4 F L Pulse Rate 58 L Respiratory Rate 14 Blood Pressure 123/78 Pulse Oximetry 93 Oxygen Delivery Intake/Output Intake/Output: Intake & Output 08/16/22 08/17/22 08/18/22 08/19/22 23:59 23:59 23:59 23:59 Intake Total 1000 2240 300 0 Output Total 725 750 Balance 1000 1515 -450 0 Meds/Results Medications: Active Medications Generic Name Dose Route Start Last Admin Trade Name Freq PRN Reason Stop Dose Admin Finasteride 5 mg 08/18/22 09:00 08/18/22 15:18 Finasteride 5 Mg Tablet PO 5 mg DAILY SHELLY Administration Sodium Chloride 1,000 mls @ 75 mls/hr 08/17/22 00:05 08/18/22 05:31 Normal Saline Iv IV CONT 75 mls/hr .[id number] SHELLY Administration Memantine 10 mg 08/17/22 17:00 08/18/22 19:20 Memantine 10 Mg Tablet PO Not Given BID SHELLY Ondansetron HCl 4 mg 08/16/22 17:17 Ondansetron Inj 4 Mg/2 Ml Vial IV PUSH Q4H PRN Nausea Pantoprazole Sodium 40 mg 08/17/22 12:00 08/18/22 15:18 Pantoprazole 40 Mg Tablet PO 40 mg QAM SHELLY Administration Quetiapine Fumarate 12.5 mg 08/18/22 21:00 08/18/22 21:54 Quetiapine Fumarate 12.5 Mg Tablet PO 12.5 mg HS SHELLY Administration Tamsulosin HCl 0.4 mg 08/18/22 09:00 08/18/22 15:18 Tamsulosin Hcl 0.4 Mg Capsule PO 0.4 mg DAILY SHELLY Administration Radiology Results: ITS Impressions Chest X-Ray 08/16/22 14:02 Impression: 1: Left basilar airspace disease may represent pneumonia and/or atelectasis.
--- NOTE | 2022-08-19 13:32 | PM.IMPN ---
Progress Note: A&P Assessment and Plan (1) Pancreatitis: Code(s): K85.90 - Acute pancreatitis without necrosis or infection, unspecified Status: Acute Assessment and Plan: Presented with decreased appetite, abdominal pain, [address] abdomen/pelvis on presentation did not reveal any pancreatic abnormalities, however lipase was elevated to 7700. No alcohol use. Triglycerides within normal limits. RUQ US revealed cholelithiasis, biliary sludge, and gallbladder wall thickening with normal common bile duct. Consult to General surgery, recommendations appreciated. General surgery discussed laparoscopic cholecystectomy with patient's son/ POA who declined surgical intervention. Continue full liquid diet today per General surgery recommendations, patient has not eaten as he has been sleeping during mealtimes. Continue with gentle IV fluids until tolerating oral intake. Analgesics and antiemetics as needed (2) Cholelithiasis: Code(s): K80.20 - Calculus of gallbladder without cholecystitis without obstruction Status: Acute Assessment and Plan: See plan above (3) Transaminitis: Code(s): R74.01 - Elevation of levels of liver transaminase levels Status: Acute Assessment and Plan: Total bili increased to 2.1 today, therefore will proceed with GI consultation. May consider MRCP, however unsure if patient would be able to lie still for this. AST and ALT normalized. Continue to trend LFTs (4) Gastritis: Code(s): K29.70 - Gastritis, unspecified, without bleeding Status: Acute Assessment and Plan: Gastritis and esophagitis noted on CT. Pantoprazole 40 mg daily. (5) Dementia with agitation: Code(s): F03.911 - Unspecified dementia, unspecified severity, with agitation Status: Acute Assessment and Plan: Patient is oriented to self only and resides in Memory Care, felt to be at his baseline mental status. Continue home memantine. Patient has been restless throughout hospitalization and not sleeping. Started low-dose Seroquel at bedtime on 08/18/22, continue. Melatonin tonight. (6) Kidney stone: Code(s): N20.0 - Calculus of kidney Status: Acute Assessment and Plan: Innumerable nonobstructing kidney stones as well as bladder stones noted on CT. Patient is asymptomatic. No intervention required. Encourage increased oral hydration. Strain urine (7) Benign prostatic hyperplasia without lower urinary tract symptoms: Code(s): N40.0 - Benign prostatic hyperplasia without lower urinary tract symptoms Status: Acute Assessment and Plan: Continue home finasteride and tamsulosin. Monitor urine output (8) Renal cyst: Code(s): N28.1 - Cyst of kidney, acquired Status: Acute Assessment and Plan: Multiple bilateral simple renal cysts and calcified cyst incidentally noted on CT of the abdomen pelvis, likely benign. No need for further intervention at this time. Subjective Date/time seen: 08/19/22 13:32 Interval history: Date of service: 08/18/22 Donte Wayne is an 82 year old male with a history of dementia, TIA, and BPH who is seen in follow up for pancreatitis. Patient has been very restless and not sleeping. Fell asleep this morning and has been resting comfortably since. Because of this, he has not had any of his full liquid diet today. His son is at the bedside today. Did not attempt to wake patient to obtain history as it would not be beneficial given his dementia Review of Systems Review of Systems: ROS unobtainable: Yes unobtainable due to mental status Exam Narrative: General: Thin, chronically ill-appearing 82-year-old male, supine in bed, comfortable, NARD Neuro: asleep, resting comfortably HEENMT: normocephalic, atraumatic, EOMI, sclerae anicteric Respiratory: clear to auscultation anteriorly, nonlabored breathing Cardio: regular rate, r
[2022-08-19 14:00] VITALS: BP 111/68; PULSE 68; RESP 18; TEMP 36.6; O2SAT 98
--- NOTE | 2022-08-19 16:30 | WPDGICN ---
Assessment and Plan Assessment and plan (1) Gallstone pancreatitis: Code(s): K85.10 - Biliary acute pancreatitis without necrosis or infection Status: Acute Assessment and Plan: surgery on board no alcohol use trend liver enzymes, still elevated bilirubin agreed with mrcp may need interval lap brett (2) Transaminitis: Code(s): R74.01 - Elevation of levels of liver transaminase levels Status: Acute Assessment and Plan: continue to monitor (3) Dementia with agitation: Code(s): F03.911 - Unspecified dementia, unspecified severity, with agitation Status: Acute (4) Upper abdominal pain: Code(s): R10.10 - Upper abdominal pain, unspecified Status: Acute Assessment and Plan: improved GI Consult Note Consult date/time: 08/19/22 16:30 Reason for consult: GS pancreatitis HPI: Donte Wayne is a 82 year old male with dementia who came to the ER 2 days ago from [facility] for evaluation of lethargy and abdominal pain (history is obtained from records because his dementia, he is alert and talking but poor historian and unreliable). He had decreased appetite and was complaining of upper abdominal pain and emesis.His labs showed a WBC count 12,900, total bilirubin 1.6, AST 71, ALT 70, alk phos 119, and lipase 7,701. CT scan of the abdomen and pelvis showed esophagitis/gastritis, sigmoid wall edema, mesenteric edema, bilateral renal stones, and bladder stones.? Right upper quadrant abdominal ultrasound showed cholelithiasis, biliary sludge, and gallbladder wall thickening.? LFTs have overall trended down, but total bilirubin still elevated, MRCP just ordered.? Triglycerides are normal.? No history of heavy alcohol use Review of Systems Review of Systems: ROS unobtainable: Yes unobtainable due to mental status [facility] Past Medical History Medical History (Updated 08/19/22 @ 16:33 by Jesus Devine MD) Dementia Gallstone pancreatitis History of fractured pelvis 07/29 History of TIA (transient ischemic attack) 07/25 on right Upper abdominal pain Surgical History Surgical History H/O cataract extraction History of inguinal hernia repair Family History Family History Mother Breast cancer Father Malignant neoplasm of prostate Social History Social History Social History: Patient resides in a prison. The patient stated that he is x2. However on his demographics states that he is . Zahra is listed as his spouse and certified personal finance counselor. He also has a son Tyler listed as his contact. The patient is retired. Code status full code Smoking status: Never smoker Second hand tobacco smoke exposure: No Alcohol intake: never Substance use: never Substance use type: does not use Lack of Transportation: No Lack of Food: Never True Current Housing: I Have Housing Concerned About Future Housing: No Difficulty Paying Gas/Electric Bills: No Difficulty Paying for Meds: No Currently Unemployed: No Education: Don't Know Difficulty w/ Childcare or Family Care: No Gender identity (if verbalized by the patient): Male Sexual Orientation (if Verbalized by the Patient): Straight or Heterosexual Spiritual care concerns: No Agree to blood products: Yes Meds Home Medications and Allergies Home Medications Medication Instructions Recorded Confirmed Type finasteride 5 mg tablet 5 mg PO DAILY 08/16/22 08/16/22 History memantine 10 mg tablet 10 mg PO BID 08/16/22 08/16/22 History sulindac 200 mg tablet 200 mg PO BID 08/16/22 08/16/22 History tamsulosin 0.4 mg capsule 0.4 mg PO DAILY 08/16/22 08/16/22 History Allergies Allergy/AdvReac Type Severity Reaction Status Date / Time Penicillins Allergy Unknown u
[2022-08-19] MEDS: MEMANTINE 10 MG TABLET PO (18:03)
[2022-08-19] MEDS: QUEtiapine FUMARATE 12.5 MG TABLET PO (20:51)
[2022-08-19] MEDS: MELATONIN 3 MG TABLET PO (20:51)
[2022-08-20 06:00] VITALS: BP 128/65; PULSE 58; RESP 16; TEMP 36.1; O2SAT 94
[2022-08-20 06:34] LABS: Hematocrit 38.7 % (42.0-52.0); Mean Corpuscular HGB Conc 33.6 g/dl (32-36); Mean Corpuscular Hemoglobin 33.4 pg (26-34); Mean Corpuscular Volume 99.5 fl (80-100); Mean Platelet Volume 10.6 fl (7.4-10.4); Platelet Count Result 204 k/mm3 (150-375); Red Blood Count 3.89 M/mm3 (4.6-6.20); Red Cell Distribution Width 13.6 % (11.5-14.5); White Blood Count 6.8 K/mm3 (4.5-10.0)
[2022-08-20 06:54] LABS: Alanine Aminotransferase 32 U/L (6-50); Albumin Level 3.2 g/dL (3.5-5.1); Alkaline Phosphatase 71 U/L (38-126); Anion Gap 2 mmol/L (8-16); Aspartate Amino Transferase 34 U/L (17-59); Bilirubin,Total 1.3 mg/dL (0.2-1.3); Blood Urea Nitrogen 17 mg/dL (9-20); Calcium 8.3 mg/dL (8.4-10.2); Carbon Dioxide 29 mmol/L (22-30); Chloride 104 mmol/L (98-107); Estimated CRCL calculation 64 ml/min; Estimated Glomerular Filt Rate > 60; Glucose 79 mg/dL (65-110); Potassium 3.2 mmol/L (3.4-5.0); Sodium 135 mmol/L (137-145)
--- NOTE | 2022-08-20 09:00 | PM.IMPN ---
Progress Note: A&P Assessment and Plan (1) Pancreatitis: Code(s): K85.90 - Acute pancreatitis without necrosis or infection, unspecified Status: Acute Assessment and Plan: Presented with decreased appetite, abdominal pain, [address] abdomen/pelvis on presentation did not reveal any pancreatic abnormalities lipase was elevated to 7700. No alcohol use. Triglycerides within normal limits. RUQ US revealed cholelithiasis, biliary sludge, and gallbladder wall thickening with normal common bile duct. Consult to General surgery, recommendations appreciated. . General surgery discussed laparoscopic cholecystectomy with patient's son/ POA who declined surgical intervention. Continue diet per General surgery recommendations PO intake is not the best as sleep wake cycle is off Continue with gentle IV fluids until tolerating oral intake. Analgesics and antiemetics as needed (2) Cholelithiasis: Code(s): K80.20 - Calculus of gallbladder without cholecystitis without obstruction Status: Acute Assessment and Plan: See plan above GI consulted MRCP scheduled for today (3) Transaminitis: Code(s): R74.01 - Elevation of levels of liver transaminase levels Status: Acute Assessment and Plan: Total bili trending down currently 1.3 today GI consultation. MRCP, being performed today, add some IM haldol x1 for MRI only AST and ALT normalized. Continue to trend LFTs (4) Gastritis: Code(s): K29.70 - Gastritis, unspecified, without bleeding Status: Acute Assessment and Plan: Gastritis and esophagitis noted on CT. Pantoprazole 40 mg daily. (5) Dementia with agitation: Code(s): F03.911 - Unspecified dementia, unspecified severity, with agitation Status: Acute Assessment and Plan: Patient is oriented to self only and resides in Memory [facility], felt to be at his baseline mental status. Continue home memantine. Continue low-dose Seroquel at bedtime on 08/18/22, Continue added Melatonin Will need more day/night sleep cycle control (6) Kidney stone: Code(s): N20.0 - Calculus of kidney Status: Acute Assessment and Plan: Innumerable nonobstructing kidney stones as well as bladder stones noted on CT. Patient is asymptomatic. No intervention required. Encourage increased oral hydration. Strain urine (7) Benign prostatic hyperplasia without lower urinary tract symptoms: Code(s): N40.0 - Benign prostatic hyperplasia without lower urinary tract symptoms Status: Acute Assessment and Plan: Continue home finasteride and tamsulosin. Trend urine output Bladder scan PRN if indicated (8) Renal cyst: Code(s): N28.1 - Cyst of kidney, acquired Status: Acute Assessment and Plan: Multiple bilateral simple renal cysts and calcified cyst incidentally noted on CT of the abdomen pelvis, likely benign. No need for further intervention at this time. (9) Stye: Code(s): H00.019 - Hordeolum externum unspecified eye, unspecified eyelid Status: Acute Assessment and Plan: Complaints of burning in the left eye Does appear to have a stye Start tobramycin ointment Ask nursing to do a warm compress Time Spent With Patient Time with patient: Greater than 35 minutes Subjective Date/time seen: 08/20/22 09:00 Interval history: 08/20/22 0900 Patient was lying in bed comfortably. Patient denies any complaints however complete review of systems unable be obtained due to patient's mental status. Patient denied abdominal pain however with palpation patient did seem to some degree of pain but when asked he told me that it was because I was pushing on his stomach kind of hard. MRCP is scheduled for today. patient does seem to be relax and calm at this time how
--- NOTE | 2022-08-20 09:00 | P.PNIM_ITS ---
Progress Note: A&P Assessment and Plan (1) Pancreatitis: Code(s): K85.90 - Acute pancreatitis without necrosis or infection, unspecified Status: Acute Assessment and Plan: * Presented with decreased appetite, abdominal pain, 1 episode of emesis. * CT abdomen/pelvis on presentation did not reveal any pancreatic abnormalities * lipase was elevated to 7700. * No alcohol use. * Triglycerides within normal limits. * RUQ US revealed cholelithiasis, biliary sludge, and gallbladder wall thickening with normal common bile duct. * Consult to General surgery, recommendations appreciated. . * General surgery discussed laparoscopic cholecystectomy with patient's son/ POA who declined surgical intervention. * Continue diet per General surgery recommendations * PO intake is not the best as sleep wake cycle is off * Continue with gentle IV fluids until tolerating oral intake. * Analgesics and antiemetics as needed (2) Cholelithiasis: Code(s): K80.20 - Calculus of gallbladder without cholecystitis without obstruction Status: Acute Assessment and Plan: * See plan above * GI consulted * MRCP scheduled for today (3) Transaminitis: Code(s): R74.01 - Elevation of levels of liver transaminase levels Status: Acute Assessment and Plan: * Total bili trending down currently 1.3 today * GI consultation. * MRCP, being performed today, add some IM haldol x1 for MRI only * AST and ALT normalized. * Continue to trend LFTs (4) Gastritis: Code(s): K29.70 - Gastritis, unspecified, without bleeding Status: Acute Assessment and Plan: * Gastritis and esophagitis noted on CT. * Pantoprazole 40 mg daily. (5) Dementia with agitation: Code(s): F03.911 - Unspecified dementia, unspecified severity, with agitation Status: Acute Assessment and Plan: * Patient is oriented to self only and resides in Memory [facility], felt to be at his baseline mental status. * Continue home memantine. * Continue low-dose Seroquel at bedtime on 08/18/22, Continue added Melatonin * Will need more day/night sleep cycle control (6) Kidney stone: Code(s): N20.0 - Calculus of kidney Status: Acute Assessment and Plan: * Innumerable nonobstructing kidney stones as well as bladder stones noted on CT. * Patient is asymptomatic. * No intervention required. * Encourage increased oral hydration. * Strain urine (7) Benign prostatic hyperplasia without lower urinary tract symptoms: Code(s): N40.0 - Benign prostatic hyperplasia without lower urinary tract symptoms Status: Acute Assessment and Plan: * Continue home finasteride and tamsulosin. * Trend urine output * Bladder scan PRN if indicated (8) Renal cyst: Code(s): N28.1 - Cyst of kidney, acquired Status: Acute Assessment and Plan: * Multiple bilateral simple renal cysts and calcified cyst incidentally noted on CT of the abdomen pelvis, likely benign. * No need for further intervention at this time. (9) Stye: Code(s): H00.019 - Hordeolum externum unspecified eye, unspecified eyelid Status: Acute Assessment and Plan: * Complaints of burning in the left eye * Does appear to have a stye * Start tobramycin ointment * Ask nursing to do a warm compress
[2022-08-20] MEDS: HALOPERIDOL LACTATE 5 MG/ML VIAL IM (10:15)
[2022-08-20] MEDS: [UNRECOGNIZED DRUG - OTHER] LEFT EYE ×3 (12:29→21:01)
[2022-08-20] MEDS: TOBRAMYCIN LEFT EYE ×3 (12:29→21:01)
[2022-08-20] MEDS: SODIUM CHLORIDE 0.9% IV 1,000 ML 75 ML IV CONT (12:42)
[2022-08-20 14:00] VITALS: BP 123/69; PULSE 92; RESP 14; TEMP 36.2; O2SAT 97
--- NOTE | 2022-08-20 16:20 | WPDGIPROGNO ---
Progress Note: A&P Assessment and Plan (1) Gallstone pancreatitis: Code(s): K85.10 - Biliary acute pancreatitis without necrosis or infection Status: Acute Assessment and Plan: MRCP reviewed, Cholelithiasis. Normal gallbladder and no intra- or extrahepatic biliary ductal dilation. no need of ercp surgery on board liquid diet and advance as tolerated noted normalization of bilirubin and no obvious pain (poor historian) (2) Dementia with agitation: Code(s): F03.911 - Unspecified dementia, unspecified severity, with agitation Status: Acute (3) Transaminitis: Code(s): R74.01 - Elevation of levels of liver transaminase levels Status: Acute Assessment and Plan: normal bilirubin now (4) Upper abdominal pain: Code(s): R10.10 - Upper abdominal pain, unspecified Status: Acute Assessment and Plan: improved Subjective Date/time seen: 08/20/22 16:20 Interval history: no new events Review of Systems Review of Systems: All systems reviewed & are unremarkable except as noted in HPI and below Exam Const: General: comfortable and no acute distress Orientation/consciousness: confusion HENMT: Face/Nose/Sinus: Normal nares present Eyes: General: appearance normal, both eyes and all related structures Neck: Neck: supple Resp: Auscultation: clear to auscultation bilaterally Cardio: Rate: regular rate GI: Inspection: non-distended GI Palp: Yes Soft to palpation, No Tenderness to palpation present (GI), No Guarding due to palpation present (GI) and No Rebound tenderness present Auscultation: normal bowel sounds Skin: General skin exam: normal color Neuro: Speech: normal speech Other: awake and alert but confused Extrem: General: normal to inspection Psych: Insight: Limited insight present (Psych) Judgement: Limited judgement present (Psych) Objective Data Vital Signs Vital Signs: Vital Signs - 24 hr 08/20/22 06:00 08/20/22 14:00 Temperature 96.9 F L 97.1 F L Pulse Rate 58 L 92 Respiratory Rate 16 14 Blood Pressure 128/65 123/69 Pulse Oximetry 94 97 Intake/Output Intake/Output: Intake & Output 08/17/22 08/18/22 08/19/22 08/20/22 23:59 23:59 23:59 23:59 Intake Total 2240 1300 415 50 Output Total 725 750 Balance 1515 550 415 50 Meds/Results Medications: Active Medications Generic Name Dose Route Start Last Admin Trade Name Freq PRN Reason Stop Dose Admin Finasteride 5 mg 08/18/22 09:00 08/20/22 10:22 Finasteride 5 Mg Tablet PO Not Given DAILY SHELLY Haloperidol Lactate 5 mg 08/20/22 09:39 08/20/22 10:15 Haloperidol Lactate 5 Mg/Ml Vial IM 5 mg ONCE PRN Administration FOR agitation Sodium Chloride 1,000 mls @ 75 mls/hr 08/17/22 00:05 08/20/22 12:42 Normal Saline Iv IV CONT 75 mls/hr .[id number] SHELLY Administration Melatonin 5 mg 08/20/22 21:00 Melatonin 5 Mg Tablet PO HS SHELLY Memantine 10 mg 08/17/22 17:00 08/20/22 10:22 Memantine 10 Mg Tablet PO Not Given BID SHELLY Ondansetron HCl 4 mg 08/16/22 17:17 Ondansetron Inj 4 Mg/2 Ml Vial IV PUSH Q4H PRN Nausea Pantoprazole Sodium 40 mg 08/17/22 12:00 08/20/22 10:22 Pantoprazole 40 Mg Tablet PO Not Given QAM SHELLY Quetiapine Fumarate 12.5 mg 08/18/22 21:00 08/19/22 20:51 Quetiapine Fumarate 12.5 Mg Tablet PO 12.5 mg HS SHELLY Administration Tamsulosin HCl 0.4 mg 08/18/22 09:00 08/20/22 10:22 Tamsulosin Hcl 0.4 Mg Capsule PO Not Given DAILY SHELLY Tobramycin/Dexamethasone 1 applic 08/20/22 13:00 08/20/22 12:29 Tobramycin/Dexamethasone Op Oint 3.5 Gm Tube LEFT EYE 1 applic QID SHELLY Administration Radiology Results: ITS Impressions Chest X-Ray 08/16/22 14:02 Impression: 1: Left basilar airspace disease may represent pneumonia and/or atelectasis. Abdomen/Pelvis CT 08/16/22 16:02 IMPRESSION: Esophagitis/gastritis. Sigmoid wall edema may refl
[2022-08-20] MEDS: MEMANTINE 10 MG TABLET PO (16:51)
[2022-08-20] MEDS: QUEtiapine FUMARATE 12.5 MG TABLET PO (21:01)
[2022-08-20] MEDS: MELATONIN 5 MG TABLET PO (21:01)
[2022-08-20 22:00] VITALS: BP 123/68; PULSE 134; RESP 17; TEMP 36.2; O2SAT 96
[2022-08-21 06:00] VITALS: BP 120/67; PULSE 130; RESP 17; TEMP 36.2; O2SAT 95
[2022-08-21 06:27] LABS: Basophils Absolute Auto 0.1 K/mm3 (0.0-0.1); Basophils Percent Auto 0.8 % (0.2-1.2); Eosinophils Absolute Auto 0.4 K/mm3 (0-0.3); Eosinophils Percent Auto 5.1 % (0-4.4); Hematocrit 42.6 % (42.0-52.0); Hemoglobin 14.6 g/dL (14.0-18.0); Immature Granulocyte Absolute 0.06 K/mm3 (0.00-0.031); Immature Granulocyte Percent A 0.8 % (0-0.5); Lymphocytes Absolute Auto 1.23 K/mm3 (0.9-3.2); Lymphocytes Percent Auto 16.7 % (18.3-44.2); Mean Corpuscular HGB Conc 34.3 g/dl (32-36); Mean Corpuscular Hemoglobin 32.8 pg (26-34); Mean Corpuscular Volume 95.7 fl (80-100); Mean Platelet Volume 10.3 fl (7.4-10.4); Monocytes Absolute Auto 0.8 K/mm3 (0.1-0.6); Monocytes Percent Auto 10.4 % (2.6-8.5); Neutrophils Absolute Auto 4.9 K/mm3 (1.3-6.7); Neutrophils Percent Auto 66.2 % (45.5-73.1); Platelet Count Result 245 k/mm3 (150-375); Red Blood Count 4.45 M/mm3 (4.6-6.20); Red Cell Distribution Width 13.3 % (11.5-14.5); White Blood Count 7.4 K/mm3 (4.5-10.0)
[2022-08-21 06:40] LABS: Anion Gap 8 mmol/L (8-16); Blood Urea Nitrogen 15 mg/dL (9-20); Calcium 8.8 mg/dL (8.4-10.2); Carbon Dioxide 27 mmol/L (22-30); Chloride 103 mmol/L (98-107); Estimated CRCL calculation 64 ml/min; Estimated Glomerular Filt Rate > 60; Glucose 96 mg/dL (65-110); Potassium 3.4 mmol/L (3.4-5.0); Sodium 138 mmol/L (137-145)
[2022-08-21 06:41] LABS: Alanine Aminotransferase 32 U/L (6-50); Albumin Level 3.7 g/dL (3.5-5.1); Alkaline Phosphatase 87 U/L (38-126); Aspartate Amino Transferase 34 U/L (17-59); Bilirubin,Total 1.2 mg/dL (0.2-1.3); Magnesium 1.9 mg/dL (1.6-2.3)
[2022-08-21] MEDS: MEMANTINE 10 MG TABLET PO ×2 (08:30→16:28)
[2022-08-21] MEDS: FINASTERIDE 5 MG TABLET PO (08:30)
[2022-08-21] MEDS: [UNRECOGNIZED DRUG - OTHER] LEFT EYE ×3 (08:30→16:28)
[2022-08-21] MEDS: TOBRAMYCIN LEFT EYE ×3 (08:30→16:28)
[2022-08-21] MEDS: PANTOPRAZOLE 40 MG TABLET PO (08:30)
[2022-08-21] MEDS: TAMSULOSIN HCL 0.4 MG CAPSULE PO (08:30)
[2022-08-21] MEDS: SODIUM CHLORIDE 0.9% IV 1,000 ML 75 ML IV CONT (08:34)
--- NOTE | 2022-08-21 08:45 | PM.DS ---
DS: Admitting Diagnosis Discharge Date 08/21/22 0845 Admitting Diagnosis pancreatitis, cholelithiasis DS: Discharge Diagnosis Discharge Diagnosis (1) Pancreatitis: Code(s): K85.90 - Acute pancreatitis without necrosis or infection, unspecified Status: Acute Assessment and Plan: Presented with decreased appetite, abdominal pain, [address] abdomen/pelvis on presentation did not reveal any pancreatic abnormalities lipase was elevated to 7700. No alcohol use. Triglycerides within normal limits. RUQ US revealed cholelithiasis, biliary sludge, and gallbladder wall thickening with normal common bile duct. Consult to General surgery, recommendations appreciated. . General surgery discussed laparoscopic cholecystectomy with patient's son/ POA who declined surgical intervention. Continue diet per General surgery recommendations PO intake is not the best as sleep wake cycle is off Continue with gentle IV fluids until tolerating oral intake. Analgesics and antiemetics as needed (2) Cholelithiasis: Code(s): K80.20 - Calculus of gallbladder without cholecystitis without obstruction Status: Acute Assessment and Plan: See plan above GI consulted MRCP scheduled for today (3) Transaminitis: Code(s): R74.01 - Elevation of levels of liver transaminase levels Status: Acute Assessment and Plan: Total bili trending down currently 1.3 today GI consultation. MRCP, being performed today, add some IM haldol x1 for MRI only AST and ALT normalized. Continue to trend LFTs (4) Gastritis: Code(s): K29.70 - Gastritis, unspecified, without bleeding Status: Acute Assessment and Plan: Gastritis and esophagitis noted on CT. Pantoprazole 40 mg daily. (5) Dementia with agitation: Code(s): F03.911 - Unspecified dementia, unspecified severity, with agitation Status: Acute Assessment and Plan: Patient is oriented to self only and resides in [facility], felt to be at his baseline mental status. Continue home memantine. Continue low-dose Seroquel at bedtime on 08/18/22, Continue added Melatonin Will need more day/night sleep cycle control (6) Kidney stone: Code(s): N20.0 - Calculus of kidney Status: Acute Assessment and Plan: Innumerable nonobstructing kidney stones as well as bladder stones noted on CT. Patient is asymptomatic. No intervention required. Encourage increased oral hydration. Strain urine (7) Benign prostatic hyperplasia without lower urinary tract symptoms: Code(s): N40.0 - Benign prostatic hyperplasia without lower urinary tract symptoms Status: Acute Assessment and Plan: Continue home finasteride and tamsulosin. Trend urine output Bladder scan PRN if indicated (8) Renal cyst: Code(s): N28.1 - Cyst of kidney, acquired Status: Acute Assessment and Plan: Multiple bilateral simple renal cysts and calcified cyst incidentally noted on CT of the abdomen pelvis, likely benign. No need for further intervention at this time. (9) Stye: Code(s): H00.019 - Hordeolum externum unspecified eye, unspecified eyelid Status: Acute Assessment and Plan: Complaints of burning in the left eye Does appear to have a stye Start tobramycin ointment Ask nursing to do a warm compress DS: Summary Hospital Course Hospital Course: patient 82-year-old male with past medical history of Alzheimer's dementia BPH, TIA who presented to the ED with complaints of right-sided abdominal pain and emesis. CT of the abdomen and pelvis that read as sigmoid wall edema, may reflect a component of colitis. Abdominal ultrasound found cholelithiasis, biliary sludge, and gallbladder wall thickening. MRCP was performed and did not show any stones or sludg
--- NOTE | 2022-08-21 08:45 | P.DS_ITS ---
DS: Admitting Diagnosis Discharge Date 08/21/22 0845 Admitting Diagnosis pancreatitis, cholelithiasis DS: Discharge Diagnosis Discharge Diagnosis (1) Pancreatitis: Code(s): K85.90 - Acute pancreatitis without necrosis or infection, unspecified Status: Acute Assessment and Plan: * Presented with decreased appetite, abdominal pain, 1 episode of emesis. * CT abdomen/pelvis on presentation did not reveal any pancreatic abnormalities * lipase was elevated to 7700. * No alcohol use. * Triglycerides within normal limits. * RUQ US revealed cholelithiasis, biliary sludge, and gallbladder wall thickening with normal common bile duct. * Consult to General surgery, recommendations appreciated. . * General surgery discussed laparoscopic cholecystectomy with patient's son/ POA who declined surgical intervention. * Continue diet per General surgery recommendations * PO intake is not the best as sleep wake cycle is off * Continue with gentle IV fluids until tolerating oral intake. * Analgesics and antiemetics as needed (2) Cholelithiasis: Code(s): K80.20 - Calculus of gallbladder without cholecystitis without obstruction Status: Acute Assessment and Plan: * See plan above * GI consulted * MRCP scheduled for today (3) Transaminitis: Code(s): R74.01 - Elevation of levels of liver transaminase levels Status: Acute Assessment and Plan: * Total bili trending down currently 1.3 today * GI consultation. * MRCP, being performed today, add some IM haldol x1 for MRI only * AST and ALT normalized. * Continue to trend LFTs (4) Gastritis: Code(s): K29.70 - Gastritis, unspecified, without bleeding Status: Acute Assessment and Plan: * Gastritis and esophagitis noted on CT. * Pantoprazole 40 mg daily. (5) Dementia with agitation: Code(s): F03.911 - Unspecified dementia, unspecified severity, with agitation Status: Acute Assessment and Plan: * Patient is oriented to self only and resides in [facility], felt to be at his baseline mental status. * Continue home memantine. * Continue low-dose Seroquel at bedtime on 08/18/22, Continue added Melatonin * Will need more day/night sleep cycle control (6) Kidney stone: Code(s): N20.0 - Calculus of kidney Status: Acute Assessment and Plan: * Innumerable nonobstructing kidney stones as well as bladder stones noted on CT. * Patient is asymptomatic. * No intervention required. * Encourage increased oral hydration. * Strain urine (7) Benign prostatic hyperplasia without lower urinary tract symptoms: Code(s): N40.0 - Benign prostatic hyperplasia without lower urinary tract symptoms Status: Acute Assessment and Plan: * Continue home finasteride and tamsulosin. * Trend urine output * Bladder scan PRN if indicated (8) Renal cyst: Code(s): N28.1 - Cyst of kidney, acquired Status: Acute Assessment and Plan: * Multiple bilateral simple renal cysts and calcified cyst incidentally noted on CT of the abdomen pelvis, likely benign. * No need for further intervention at this time. (9) Stye: Code(s): H00.019 - Hordeolum externum unspecified eye, unspecified eyelid Status: Acute Assessment and Plan: * Complaints of burning in the left eye
[2022-08-21 09:08] VITALS: BP 124/59; PULSE 68; RESP 18; TEMP 36.6; O2SAT 95
--- NOTE | 2022-08-21 14:03 | PM.PNGS ---
Progress Note: A&P Assessment and Plan (1) Pancreatitis: Code(s): K85.90 - Acute pancreatitis without necrosis or infection, unspecified Status: Acute Assessment and Plan: Resolved. Abdominal exam benign. His appetite is improving and he is tolerating a low fat diet. We have had a long discussion with his son/POA regarding surgical vs nonoperative treatment options. Family has decided not to do surgery at this time. We will sign off at this time. Recommend following a low fat diet. Call with any future surgical questions or concerns. (2) Cholelithiasis: Code(s): K80.20 - Calculus of gallbladder without cholecystitis without obstruction Status: Acute (3) Transaminitis: Code(s): R74.01 - Elevation of levels of liver transaminase levels Status: Acute Assessment and Plan: MRCP was terminated due to patient's combativeness, therefore the study is very limited. Showed cholelithiasis with a normal gallbladder and no intra or extrahepatic biliary ductal dilation. Bilirubin normal. GI following. (4) Gastritis: Code(s): K29.70 - Gastritis, unspecified, without bleeding Status: Acute (5) Dementia: Code(s): F03.90 - Unspecified dementia, unspecified severity, without behavioral disturbance, psychotic disturbance, mood disturbance, and anxiety Status: Chronic Plan I have discussed the patient's case and plan of care with Dr. Hart. Subjective Subjective Date/Time Seen: 08/21/22 10:03 Patient reports: afebrile Interval history: Patient has dementia with confusion at baseline. He denies any abdominal pain or nausea. He is eating better last night and this morning. No acute events overnight. Review of Systems Review of Systems: ROS unobtainable: Yes unobtainable due to medical condition Exam Const: General: comfortable, no acute distress and awake Orientation/consciousness: confusion (at baseline) GI: Inspection: non-distended GI Palp: Yes Soft to palpation, No Tenderness to palpation present (GI), No Guarding due to palpation present (GI) and No Rebound tenderness present Auscultation: normal bowel sounds Psych: Insight: Limited insight present (Psych) Judgement: Limited judgement present (Psych) Objective Data Vital Signs Vital Signs: Vital Signs - 24 hr 08/20/22 15:32 08/20/22 22:00 08/21/22 06:00 Temperature 97.2 F L 97.1 F L Pulse Rate 134 H 130 H Respiratory Rate 17 17 Blood Pressure 123/68 120/67 Pulse Oximetry 96 95 Oxygen Delivery Room Air 08/21/22 09:08 08/21/22 08:00 Temperature 97.9 F Pulse Rate 68 Respiratory Rate 18 Blood Pressure 124/59 L Pulse Oximetry 95 Oxygen Delivery Room Air Intake/Output Intake/Output: Intake & Output 08/18/22 08/19/22 08/20/22 08/21/22 23:59 23:59 23:59 23:59 Intake Total 1300 345 503 7021 Output Total 750 600 Balance 550 925 161 6014 Meds/Results Medications: Active Medications Generic Name Dose Route Start Last Admin Trade Name Freq PRN Reason Stop Dose Admin Finasteride 5 mg 08/18/22 09:00 08/21/22 08:30 Finasteride 5 Mg Tablet PO 5 mg DAILY SHELLY Administration Haloperidol Lactate 5 mg 08/20/22 09:39 08/20/22 10:15 Haloperidol Lactate 5 Mg/Ml Vial IM 5 mg ONCE PRN Administration FOR agitation Melatonin 5 mg 08/20/22 21:00 08/20/22 21:01 Melatonin 5 Mg Tablet PO 5 mg HS SHELLY Administration Memantine 10 mg 08/17/22 17:00 08/21/22 08:30 Memantine 10 Mg Tablet PO 10 mg BID SHELLY Administration Ondansetron HCl 4 mg 08/16/22 17:17 Ondansetron Inj 4 Mg/2 Ml Vial IV PUSH Q4H PRN Nausea Pantoprazole Sodium 40 mg 08/17/22 12:00 08/21/22 08:30 Pantoprazole 40 Mg Tablet PO 40 mg QAM SHELLY Administration Quetiapine Fumarate 12.5 mg 08/18/22 21:00 08/20/22 21:01 Quetiapine Fumarate 12.5 Mg Tablet PO 12.5 mg HS SHELLY Administration Tamsulosin HCl 0.4 mg 08/18/22 09:00 08/21
--- NOTE | 2022-08-21 15:51 | WPDGIPROGNO ---
Progress Note: A&P Assessment and Plan (1) Gallstone pancreatitis: Code(s): K85.10 - Biliary acute pancreatitis without necrosis or infection Status: Acute Assessment and Plan: MRCP reviewed, Cholelithiasis. Normal gallbladder and no intra- or extrahepatic biliary ductal dilation. no need of ercp surgery on board tolerating low fat diet now and normalization of bilirubin now, he is comfortable will follow from afar, call if questions (2) Dementia with agitation: Code(s): F03.911 - Unspecified dementia, unspecified severity, with agitation Status: Acute (3) Transaminitis: Code(s): R74.01 - Elevation of levels of liver transaminase levels Status: Acute Assessment and Plan: normal bilirubin now (4) Upper abdominal pain: Code(s): R10.10 - Upper abdominal pain, unspecified Status: Acute Assessment and Plan: resolved Subjective Date/time seen: 08/21/22 15:51 Interval history: no events, he is eating and no report of abdominal pain, he is comfortable Review of Systems Review of Systems: All systems reviewed & are unremarkable except as noted in HPI and below Exam Const: General: comfortable and no acute distress Orientation/consciousness: confusion HENMT: Face/Nose/Sinus: Normal nares present Eyes: General: appearance normal, both eyes and all related structures Neck: Neck: supple Resp: Auscultation: clear to auscultation bilaterally Cardio: Rate: regular rate GI: Inspection: non-distended GI Palp: Yes Soft to palpation, No Tenderness to palpation present (GI), No Guarding due to palpation present (GI) and No Rebound tenderness present Auscultation: normal bowel sounds Skin: General skin exam: normal color Neuro: Speech: normal speech Other: awake and alert but confused Extrem: General: normal to inspection Psych: Insight: Limited insight present (Psych) Judgement: Limited judgement present (Psych) Objective Data Vital Signs Vital Signs: Vital Signs - 24 hr 08/20/22 22:00 08/21/22 06:00 08/21/22 09:08 Temperature 97.2 F L 97.1 F L 97.9 F Pulse Rate 134 H 130 H 68 Respiratory Rate 17 17 18 Blood Pressure 123/68 120/67 124/59 L Pulse Oximetry 96 95 95 Oxygen Delivery 08/21/22 08:00 Temperature Pulse Rate Respiratory Rate Blood Pressure Pulse Oximetry Oxygen Delivery Room Air Intake/Output Intake/Output: Intake & Output 08/18/22 08/19/22 08/20/22 08/21/22 23:59 23:59 23:59 23:59 Intake Total 1300 321 926 3446 Output Total 750 600 Balance 550 300 299 7307 Meds/Results Medications: Active Medications Generic Name Dose Route Start Last Admin Trade Name Freq PRN Reason Stop Dose Admin Finasteride 5 mg 08/18/22 09:00 08/21/22 08:30 Finasteride 5 Mg Tablet PO 5 mg DAILY SHELLY Administration Haloperidol Lactate 5 mg 08/20/22 09:39 08/20/22 10:15 Haloperidol Lactate 5 Mg/Ml Vial IM 5 mg ONCE PRN Administration FOR agitation Melatonin 5 mg 08/20/22 21:00 08/20/22 21:01 Melatonin 5 Mg Tablet PO 5 mg HS SHELLY Administration Memantine 10 mg 08/17/22 17:00 08/21/22 08:30 Memantine 10 Mg Tablet PO 10 mg BID SHELLY Administration Ondansetron HCl 4 mg 08/16/22 17:17 Ondansetron Inj 4 Mg/2 Ml Vial IV PUSH Q4H PRN Nausea Pantoprazole Sodium 40 mg 08/17/22 12:00 08/21/22 08:30 Pantoprazole 40 Mg Tablet PO 40 mg QAM SHELLY Administration Quetiapine Fumarate 12.5 mg 08/18/22 21:00 08/20/22 21:01 Quetiapine Fumarate 12.5 Mg Tablet PO 12.5 mg HS SHELLY Administration Tamsulosin HCl 0.4 mg 08/18/22 09:00 08/21/22 08:30 Tamsulosin Hcl 0.4 Mg Capsule PO 0.4 mg DAILY SHELLY Administration Tobramycin/Dexamethasone 1 applic 08/20/22 13:00 08/21/22 12:48 Tobramycin/Dexamethasone Op Oint 3.5 Gm Tube LEFT EYE 1 applic QID SHELLY Administration Radiology Results: ITS Impressions Chest X-Ray 08/16/22 14:0
--- NOTE | 2022-08-21 16:40 | PC.NURSE ---
Called [facility] of [facility] at [phone] and gave report to Mer. Will fax Covid results once results are back.
[2022-08-21 16:43] LABS: EDCOVIDSCREEN Negative (Negative)
== END 2022-08-21 18:15 | DRG 439 ==
LOC: ANHED 14:44 → ANH3MEDSUR 18:01
PROVIDERS: General Practice; Nurse Practitioner; Physician Assistant; Admitting Provider Internal Medicine; Emergency Provider Emergency Medicine; PCP Family Medicine Adolescent Medicine; Visit Provider Nurse Practitioner
DX: K85.10 Biliary acute pancreatitis without necrosis or infection (principal); F02.811 Dementia in other diseases classified elsewhere, unspecified severity, with agitation; K52.9 Noninfective gastroenteritis and colitis, unspecified; G30.9 Alzheimer's disease, unspecified; K80.20 Calculus of gallbladder without cholecystitis without obstruction; N20.0 Calculus of kidney; R74.01 Elevation of levels of liver transaminase levels; N40.0 Benign prostatic hyperplasia without lower urinary tract symptoms; N28.1 Cyst of kidney, acquired; H00.016 Hordeolum externum left eye, unspecified eyelid; K29.70 Gastritis, unspecified, without bleeding; Z20.822 Contact with and (suspected) exposure to COVID-19; N21.0 Calculus in bladder; Z86.73 Personal history of transient ischemic attack (TIA), and cerebral infarction without residual deficits
CPT/HCPCS: 36415; 71045; 74177; 74183; 76376; 76705; 80053; 80061; 81001; 83605; 83690; 83735; 85025; 85027; 87426; 87636; 93005; 96361; 96374; 97161; 97166; 97530; 97535; 99285; A9270; C9803; J1630; J3480; J7030; Q9967